=== PATIENT | male | born 1960 | race Two or more races ===

== ENCOUNTER 2018-04-24 11:23 | Emergency (ER) | payer MEDICARE, OTHER ==
[~2018-04-24] VITALS: Ht 172.7 cm; Wt 82.0 kg
[2018-04-24 11:28] VITALS: BP 168/82
[2018-04-24] MEDS ORDERED: ASPI-611 PO (11:42)
[2018-04-24] MEDS ORDERED: LOSA100T28 PO (11:42)
[2018-04-24] MEDS ORDERED: CEPH-571 PO (11:42)
== END 2018-04-24 11:58 | disposition home or self-care (01) ==
LOC: ER 11:23
DX: E11.621 Type 2 diabetes mellitus with foot ulcer (principal); E11.42 Type 2 diabetes mellitus with diabetic polyneuropathy; L97.521 Non-pressure chronic ulcer of other part of left foot limited to breakdown of skin; I10 Essential (primary) hypertension; Z76.0 Encounter for issue of repeat prescription; Z88.8 Allergy status to other drugs, medicaments and biological substances; Z79.2 Long term (current) use of antibiotics; Z79.82 Long term (current) use of aspirin; Z79.899 Other long term (current) drug therapy
CPT/HCPCS: 82948; 99283

== ENCOUNTER 2018-04-27 12:06 | Emergency (ER) | payer MEDICARE, OTHER ==
[~2018-04-27] VITALS: Ht 172.7 cm; Wt 85.0 kg
[~2018-04-27 12:06] MED LIST: ASPI-611 PO; CEPH-571 PO; LOSA100T28 PO
[2018-04-27 12:10] VITALS: BP 160/70
[2018-04-27] MEDS ORDERED: insulin glargine (Lantus) pen - multi-dose SQ STA (12:34)
[2018-04-27] MEDS ORDERED: INSU100V12 SQ (13:01)
[2018-04-27] MEDS ORDERED: [UNRECOGNIZED DRUG - CODE] SQ (13:08)
== END 2018-04-27 14:00 | disposition home or self-care (01) ==
LOC: ER 12:06
DX: E10.42 Type 1 diabetes mellitus with diabetic polyneuropathy (principal); I13.10 Hypertensive heart and chronic kidney disease without heart failure, with stage 1 through stage 4 chronic kidney disease, or unspecified chronic kidney disease; E10.22 Type 1 diabetes mellitus with diabetic chronic kidney disease; N18.9 Chronic kidney disease, unspecified; Z60.2 Problems related to living alone; Z88.8 Allergy status to other drugs, medicaments and biological substances; Z79.82 Long term (current) use of aspirin; Z79.4 Long term (current) use of insulin; Z79.899 Other long term (current) drug therapy; Z76.0 Encounter for issue of repeat prescription
CPT/HCPCS: 82948; 96372; 99283; J1815